=== PATIENT | male | born 1960 | race Caucasian/White ===

== ENCOUNTER 2023-10-17 12:26 | Outpatient (CLI) | payer MEDICARE, MEDICAID, SELFPAY ==
[2023-10-17 14:28] LABS: Basophils Absolute Auto 0.1 K/mm3 (0.0-0.1); Basophils Percent Auto 1.1 % (0.2-1.2); Eosinophils Absolute Auto 0.5 K/mm3 (0-0.3); Eosinophils Percent Auto 6.2 % (0-4.4); Hematocrit 35.5 % (42.0-52.0); Hemoglobin 11.5 g/dL (14.0-18.0); Immature Granulocyte Absolute 0.04 K/mm3 (0.00-0.031); Immature Granulocyte Percent A 0.5 % (0-0.5); Lymphocytes Absolute Auto 2.62 K/mm3 (0.9-3.2); Lymphocytes Percent Auto 32.5 % (18.3-44.2); Mean Corpuscular HGB Conc 32.4 g/dl (32-36); Mean Corpuscular Hemoglobin 30.3 pg (26-34); Mean Corpuscular Volume 93.4 fl (80-100); Mean Platelet Volume 9.6 fl (7.4-10.4); Monocytes Absolute Auto 0.6 K/mm3 (0.1-0.6); Monocytes Percent Auto 7.1 % (2.6-8.5); Neutrophils Absolute Auto 4.2 K/mm3 (1.3-6.7); Neutrophils Percent Auto 52.6 % (45.5-73.1); Platelet Count Result 409 k/mm3 (150-375); White Blood Count 8.1 K/mm3 (4.5-10.0)
[2023-10-17 14:37] LABS: Alanine Aminotransferase 23 U/L (6-50); Albumin Level 4.3 g/dL (3.5-5.1); Alkaline Phosphatase 47 U/L (38-126); Anion Gap 8 mmol/L (8-16); Aspartate Amino Transferase 29 U/L (17-59); Bilirubin,Total 0.4 mg/dL (0.2-1.3); Blood Urea Nitrogen 18 mg/dL (9-20); Calcium 9.7 mg/dL (8.4-10.2); Carbon Dioxide 22 mmol/L (22-30); Chloride 107 mmol/L (98-107); Cholesterol 149 mg/dL (0-200); Estimated Glomerular Filt Rate > 60; Glucose 160 mg/dL (65-110); HDL Direct 36 mg/dL; Sodium 137 mmol/L (137-145); Triglycerides 157 mg/dL (<150)
[2023-10-17 14:38] LABS: Hemoglobin A1C 7.1 % (<5.7)
[2023-10-17 14:50] LABS: LDL Cholesterol Direct 87 mg/dL
[2023-10-17 15:08] LABS: Free T4 Free Thyroxine 1.25 ng/mL (0.78-2.19); Vitamin D 25 Hydroxy 39.5 ng/mL
[2023-10-17 15:45] LABS: Folic Acid 6.3 ng/mL (2.76->20)
[2023-10-19 18:25] LABS: Amphetamines NEGATIVE ng/mL (<500); Barbiturates NEGATIVE ng/mL (<300); Benzodiazepines POSITIVE ng/mL (<100); Cocaine Metabolite NEGATIVE ng/mL (<150); Marijuana Metabolite POSITIVE ng/mL (<20); Methadone Metabolite NEGATIVE ng/mL (<100); Opiates NEGATIVE ng/mL (<100); Oxidant NEGATIVE mcg/mL (<200); pH 6.3 (4.5-9.0)
== END 2023-10-17 12:27 | disposition home or self-care (01) ==
PROVIDERS: PCP Nurse Practitioner Family; Visit Provider Nurse Practitioner Family
DX: Z51.81 Encounter for therapeutic drug level monitoring (principal); Z79.899 Other long term (current) drug therapy
CPT/HCPCS: 36415; 80053; 80061; 80307; 82306; 82607; 82746; 83036; 84439; 84443; 85025

== ENCOUNTER 2024-01-19 10:25 | Outpatient (CLI) | payer MEDICARE, MEDICAID, SELFPAY ==
[2024-01-19 11:10] LABS: Basophils Absolute Auto 0.1 K/mm3 (0.0-0.1); Basophils Percent Auto 0.9 % (0.2-1.2); Eosinophils Absolute Auto 0.6 K/mm3 (0-0.3); Hematocrit 39.9 % (42.0-52.0); Hemoglobin 13.3 g/dL (14.0-18.0); Immature Granulocyte Absolute 0.01 K/mm3 (0.00-0.031); Immature Granulocyte Percent A 0.1 % (0-0.5); Lymphocytes Absolute Auto 2.34 K/mm3 (0.9-3.2); Lymphocytes Percent Auto 30.8 % (18.3-44.2); Mean Corpuscular HGB Conc 33.3 g/dl (32-36); Mean Corpuscular Hemoglobin 30.6 pg (26-34); Mean Corpuscular Volume 91.9 fl (80-100); Mean Platelet Volume 9.7 fl (7.4-10.4); Monocytes Absolute Auto 0.5 K/mm3 (0.1-0.6); Monocytes Percent Auto 6.4 % (2.6-8.5); Neutrophils Absolute Auto 4.1 K/mm3 (1.3-6.7); Neutrophils Percent Auto 53.8 % (45.5-73.1); Platelet Count Result 283 k/mm3 (150-375); Red Blood Count 4.34 M/mm3 (4.6-6.20); Red Cell Distribution Width 13.7 % (11.5-14.5); White Blood Count 7.6 K/mm3 (4.5-10.0)
[2024-01-19 11:24] LABS: Alanine Aminotransferase 17 U/L (6-50); Albumin Level 4.5 g/dL (3.5-5.1); Alkaline Phosphatase 65 U/L (38-126); Anion Gap 7 mmol/L (8-16); Aspartate Amino Transferase 23 U/L (17-59); Bilirubin,Total 0.6 mg/dL (0.2-1.3); Blood Urea Nitrogen 20 mg/dL (9-20); Calcium 9.6 mg/dL (8.4-10.2); Carbon Dioxide 23 mmol/L (22-30); Chloride 106 mmol/L (98-107); Cholesterol 154 mg/dL (0-200); Estimated Glomerular Filt Rate > 60; Glucose 182 mg/dL (65-110); HDL Direct 39 mg/dL; Potassium 3.7 mmol/L (3.4-5.0); Sodium 136 mmol/L (137-145); Triglycerides 158 mg/dL (<150)
[2024-01-19 11:35] LABS: LDL Cholesterol Direct 94 mg/dL
[2024-01-19 11:41] LABS: Iron 55 ug/dL (49-181)
[2024-01-19 11:51] LABS: Percent Iron Saturation 13 % (20-50)
[2024-01-19 12:38] LABS: Folic Acid > 20.0 ng/mL (2.76->20)
== END 2024-01-19 10:26 | disposition home or self-care (01) ==
PROVIDERS: PCP Nurse Practitioner Family; Visit Provider Internal Medicine
DX: E78.5 Hyperlipidemia, unspecified (principal); I10 Essential (primary) hypertension; E53.8 Deficiency of other specified B group vitamins; D64.9 Anemia, unspecified
CPT/HCPCS: 36415; 80053; 80061; 82607; 82746; 83540; 83550; 85025